=== PATIENT | female | born 1995 | race Two or more races ===

== ENCOUNTER 2017-12-05 09:34 | Emergency (ER) | payer SELFPAY ==
[~2017-12-05] VITALS: Ht 167.6 cm; Wt 98.0 kg
[2017-12-05 10:01] VITALS: BP 107/71
[2017-12-05] MEDS ORDERED: AMOX1TAB61 PO (10:44)
[2017-12-05] MEDS ORDERED: TRAM50TA PO (10:44)
[2017-12-05] MEDS ORDERED: IBUPROFEN 600 MG TABLET. PO ONE (10:45)
--- NOTE | 2017-12-05 10:48 | PHYS DOC ---
Past Medical History Past Medical History: No Pertinent History Past Surgical History: Other Additional Past Surgical Histo: Chinle teeth. Additional Information: 4 cigarettes/day. Alcohol Use: Occasionally Drug Use: None Adult General Chief Complaint Chief Complaint: FACE PAIN [facility] HPI Patient is a 22 year old [f__sex] who presents with [] Review of Systems Review of Systems Constitutional: Denies fever or chills [] Eyes: Denies change in visual acuity, redness, or eye pain [] HENT: Denies nasal congestion or sore throat [] Respiratory: Denies cough or shortness of breath [] Cardiovascular: No additional information not addressed in HPI [] GI: Denies abdominal pain, nausea, vomiting, bloody stools or diarrhea [] : Denies dysuria or hematuria [] Musculoskeletal: Denies back pain or joint pain [] Integument: Denies rash or skin lesions [] Neurologic: Denies headache, focal weakness or sensory changes [] Endocrine: Denies polyuria or polydipsia [] All other systems were reviewed and found to be within normal limits, except as documented in this note. Current Medications Current Medications Current Medications Medications (Trade) Dose Ordered Sig/Lilia Start Time Stop Time Status Last Admin Dose Admin Ibuprofen (Motrin) 600 mg 1X ONCE 12/05/17 10:45 12/05/17 10:46 Allergies Allergies Allergies Coded Allergies Type Severity Reaction Last Updated Verified No Known Drug Allergies 12/05/17 No Physical Exam Physical Exam Constitutional: Well developed, well nourished, no acute distress, non-toxic appearance. [] HENT: Normocephalic, atraumatic, bilateral external ears normal, oropharynx moist, no oral exudates, nose normal. [] Eyes: PERRLA, EOMI, conjunctiva normal, no discharge. [] Neck: Normal range of motion, no tenderness, supple, no stridor. [] Cardiovascular:Heart rate regular rhythm, no murmur [] Lungs & Thorax: Bilateral breath sounds clear to auscultation [] Abdomen: Bowel sounds normal, soft, no tenderness, no masses, no pulsatile masses. [] Skin: Warm, dry, no erythema, no rash. [] Back: No tenderness, no CVA tenderness. [] Extremities: No tenderness, no cyanosis, no clubbing, ROM intact, no edema. [] Neurologic: Alert and oriented X 3, normal motor function, normal sensory function, no focal deficits noted. [] Psychologic: Affect normal, judgement normal, mood normal. [] Current Patient Data Vital Signs Vital Signs Date Time Temp Pulse Resp B/P (MAP) Pulse Ox O2 Delivery O2 Flow Rate FiO2 12/05/17 10:01 98.2 72 16 107/71 (83) 97 Room Air 98.2 EKG EKG [] Radiology/Procedures Radiology/Procedures [] Course & Med Decision Making Course & Med Decision Making Pertinent Labs and Imaging studies reviewed. (See chart for details) [] Dragon Disclaimer Dragon Disclaimer This electronic medical record was generated, in whole or in part, using a voice recognition dictation system. Departure Departure Impression: Primary Impression: Submandibular gland inflammation Disposition: HOME, SELF-CARE Condition: STABLE Referrals: NO PCP (PCP) Patient Instructions: Abscess Additional Instructions: Follow-up with dentist advised- you could possibly have a submandibular abscess or swelling to a lymph node on your left lower jaw line which you are being prescribed antibiotics for Finish all antibiotic Warm compress to affected area every 3-4 hours Tylenol and/or ibuprofen as directed on container for pain You can take over the counter probiotic while taking antibiotic Avoid driving and drinking alcohol if taking Tramadol Scripts Tramadol Hcl (TRAMADOL HCL) 50 Mg Tablet 50 MG PO BID PRN for PAIN, #10 TAB 0 Refills Prov: ZAK GARCIA APRN 12/05/17 Amoxicillin/Potassium Clav (AUGMENTIN 875-125 TABLET) 1 Each Tablet 1 TAB PO BID, #20 TAB 0 Refills Take over the counter probiotics while on medication Prov: ZAK GARCIA APRN 12/05/17 ZAK GARCIA APRN Dec 05, 2017 10:48
== END 2017-12-05 11:03 | disposition home or self-care (01) ==
LOC: ER 09:34
DX: M27.2 Inflammatory conditions of jaws (principal); F17.210 Nicotine dependence, cigarettes, uncomplicated
CPT/HCPCS: 99283

== ENCOUNTER 2017-12-07 16:15 | Emergency (ER) | payer SELFPAY ==
[~2017-12-07] VITALS: Ht 167.6 cm; Wt 98.0 kg
[~2017-12-07 16:15] MED LIST: AMOX1TAB61 PO; TRAM50TA PO
[2017-12-07] MEDS ORDERED: IOHEXOL 300 MG/ML 100ML VIAL. IV ONE (18:00)
[2017-12-07] MEDS ORDERED: CONTRAST GIVEN. MC PRN (18:15)
[2017-12-07] MEDS ORDERED: fentaNYL PF VIAL 100 MCG/2 ML VIAL IV ONE ×2 (19:15→21:30)
[2017-12-07 19:20] LABS: CREATININE 0.6 mg/dL (0.6-1.0); GFR 123.9; POTASSIUM 3.8 mmol/L (3.5-5.1)
[2017-12-07 19:26] LABS: ALBUMIN 3.6 g/dL (3.4-5.0); ALBUMIN/GLOBULIN RATIO 0.8 (1.0-1.7); TOTAL BILIRUBIN 0.3 mg/dL (0.2-1.0); TOTAL PROTEIN 7.9 g/dL (6.4-8.2)
[2017-12-07] MEDS ORDERED: ONDANSETRON PF 4 MG/2 ML VIAL. IV ONE (19:45)
--- NOTE | 2017-12-07 20:36 | RAD ---
CT scan of the face with contrast 12/07/2017 CLINICAL HISTORY: Right jaw swelling and infection. TECHNIQUE: After the intravenous administration of 70 cc of Omnipaque 300, contiguous, 0.625 mm axial sections were obtained through the face and orbits. 3 mm reconstructed sagittal, axial and coronal images were obtained. One or more of the following individualized dose reduction techniques were utilized for this study: 1. Automated exposure control. 2. Adjustment of the mA and/or kV according to patient size. 3. Use of iterative reconstruction technique. FINDINGS: Soft tissue swelling is seen involving the right face adjacent to the body of the mandible. Increased density is seen within the adjacent fat. Skin thickening is seen in region. A rounded low-attenuation structure is seen within the subcutaneous fat in this region extending from the right aspect of the mandible which measures 2 cm in greatest diameter. This is consistent most likely with an abscess. A periapical lucency is seen involving the remaining right lower molar which measures 1.4 cm in greatest diameter. This appears to erode through the medial aspect of the mandible and is consistent with a periapical abscess. The soft tissue abscess is immediately lateral to this region. Prominent reactive cervical lymph nodes are seen, right greater than left. These measure 1 to 1.5 cm in size. The submandibular glands and parotid glands are within normal limits. The mucosal structures of the nasopharynx, oropharynx and hypopharynx and visualized larynx are within normal limits. Complete opacification of the left frontal sinuses due to mucosal thickening is seen. Mild to moderate mucosal thickening is seen involving the ethmoid air cells, left greater than right. IMPRESSION: A 1.4 cm periapical abscess is seen surrounding the roots of the remaining right lower molar within the right aspect of the mandible. This erodes through the medial aspect of the mandible. An adjacent 2 cm soft tissue abscess and associated inflammatory changes are seen lateral to this in the right aspect of the face as outlined above. Electronically signed by: Roger Chapin MD (12/07/2017 8:33 PM) [facility]
[2017-12-07 22:29] VITALS: BP 114/65
== END 2017-12-07 22:50 | disposition short-term general hospital (02) ==
LOC: ER 16:15
DX: K04.7 Periapical abscess without sinus (principal)
CPT/HCPCS: 36415; 70487; 80053; 81025; 96374; 96375; 96376; 99285; J2405; J3010; Q9967

== ENCOUNTER 2018-03-31 16:03 | Emergency (ER) | payer OTHER ==
[~2018-03-31] VITALS: Ht 167.6 cm; Wt 99.1 kg
[2018-03-31] MEDS ORDERED: ONDANSETRON PF 4 MG/2 ML VIAL. IV ONE (16:30)
[2018-03-31] MEDS ORDERED: FAMOTIDINE 20 MG/2 ML VIAL IVP ONE (16:30)
[2018-03-31] MEDS ORDERED: IV NORMAL SALINE 1000ML BAG 1,000 ML IV ONE ×2 (16:30)
--- NOTE | 2018-03-31 16:32 | PHYS DOC ---
Past Medical History Past Medical History: No Pertinent History Past Surgical History: Other Additional Past Surgical Histo: [place] teeth. Alcohol Use: Occasionally Drug Use: None Adult General Chief Complaint Chief Complaint: ABDOMINAL PAIN IN HPI HPI Patient is a 22 year old female who presents with bilateral side pains that come and go, body aches generalized, decreased appetite since yesterday, vomited 3 times the last 24 hours. Patient denies fever or any cold symptoms. She denies chest pain or shortness of air or cough, runny nose, nasal congestion , abdominal pain, vaginal discharge, vaginal bleeding. Review of Systems Review of Systems Constitutional: Denies fever or chills [] Eyes: Denies change in visual acuity, redness, or eye pain [] HENT: Denies nasal congestion or sore throat [] Respiratory: Denies cough or shortness of breath [] Cardiovascular: No additional information not addressed in HPI [] GI: Bilateral side pain comes and goes. Nausea vomiting. Denies abdominal pain, nausea, vomiting, bloody stools or diarrhea [] : Denies dysuria or hematuria [] Musculoskeletal: Generalized body aches. Denies back pain or joint pain [] Integument: Denies rash or skin lesions [] Neurologic: Denies headache, focal weakness or sensory changes [] All other systems were reviewed and found to be within normal limits, except as documented in this note. Current Medications Current Medications Current Medications Medications (Trade) Dose Ordered Sig/Lilia Start Time Stop Time Status Last Admin Dose Admin Famotidine (Pepcid Vial) 20 mg 1X ONCE 03/31/18 16:30 03/31/18 16:31 DC 03/31/18 16:43 20 MG Ondansetron HCl (Zofran) 4 mg 1X ONCE 03/31/18 16:30 03/31/18 16:31 DC 03/31/18 16:47 4 MG Sodium Chloride 1,000 ml @ 1,000 mls/hr 1X ONCE 03/31/18 16:30 03/31/18 17:29 DC Allergies Allergies Allergies Coded Allergies Type Severity Reaction Last Updated Verified No Known Drug Allergies 12/05/17 No Physical Exam Physical Exam Constitutional: Well developed, well nourished, no acute distress, non-toxic appearance. [] HENT: Normocephalic, atraumatic, bilateral external ears normal, oropharynx moist, no oral exudates, nose normal. [] Eyes: PERRLA, EOMI, conjunctiva normal, no discharge. [] Neck: Normal range of motion, no tenderness, supple, no stridor. [] Cardiovascular:Heart rate regular rhythm, no murmur [] Lungs & Thorax: Bilateral breath sounds clear to auscultation [] Abdomen: Bowel sounds normal, soft, slight bilateral side tenderness, no masses , no pulsatile masses. [] Skin: Warm, dry, no erythema, no rash. [] Back: No tenderness, no CVA tenderness. [] Extremities: No tenderness, no cyanosis, no clubbing, ROM intact, no edema. [] Neurologic: Alert and oriented X 3, normal motor function, normal sensory function, no focal deficits noted. [] Psychologic: Affect normal, judgement normal, mood normal. [] Current Patient Data Vital Signs Vital Signs Date Time Temp Pulse Resp B/P (MAP) Pulse Ox O2 Delivery O2 Flow Rate FiO2 03/31/18 16:15 98.5 104 18 111/55 (73) 100 Room Air 98.5 Lab Values Laboratory Tests Test 03/31/18 16:10 03/31/18 16:30 03/31/18 17:00 03/31/18 18:10 Urine Color Yellow Urine Clarity Clear Urine pH 5.5 Urine Specific [place] 1.025 Urine Protein Negative mg/dL (NEG-TRACE) Urine Glucose (UA) Negative mg/dL (NEG) Urine Ketones (Stick) >=80 mg/dL (NEG) Urine Blood Trace (NEG) Urine Nitrite Negative (NEG) Urine Bilirubin Negative (NEG) Urine Urobilinogen Dipstick 1.0 mg/dL (0.2 mg/dL) Urine Leukocyte Esterase Small (NEG) Urine RBC Occ /HPF (0-2) Urine WBC 1-4 /HPF (0-4) Urine Squamous Epithelial Cells Occ /LPF Urine Bacteria Few /HPF (0-FEW) Urine Mucus Mod /LPF White Blood Count 9.0 x10^3/uL (4.0-11.0) Red Blood Count 4.06 x10^6/uL (3.50-5.40) Hemoglobin 12.3 g/dL (12.0-15.5) Hematocrit 34.3 % (36.0-47.0) L Mean Corpuscular Volume 84 fL (79-100) Mean Corpuscular Hemoglobin 30 pg (25-35) Mean Corpuscular Hemoglobin Concent 36 g/dL (31-37) Red Cell Distribution Width 14.0 % (11.5-14.5) Platelet Count 265 x10^3/uL (140-400) Neutrophils (%) (Auto) 90 % (31-73) H Lymphocytes (%) (Auto) 5 % (24-48) L Monocytes (%) (Auto) 5 % (0-9) Eosinophils (%) (Auto) 0 % (0-3) Basophils (%) (Auto) 0 % (0-3) Neutrophils # (Auto) 8.1 x10^3uL (1.8-7.7) H Lymphocytes # (Auto) 0.5 x10^3/uL (1.0-4.8) L Monocytes # (Auto) 0.4 x10^3/uL (0.0-1.1) Eosinophils # (Auto) 0.0 x10^3/uL (0.0-0.7) Basophils # (Auto) 0.0 x10^3/uL (0.0-0.2) Maternal Serum HCG Beta Subunit 36836 mIU/mL (0-5) H Sodium Level 135 mmol/L (136-145) L Potassium Level 3.4 mmol/L (3.5-5.1) L Chloride Level 103 mmol/L (98-107) Carbon Dioxide Level 21 mmol/L (21-32) Anion Gap 11 (6-14) Blood Urea Nitrogen 8 mg/dL (7-20) Creatinine 0.5 mg/dL (0.6-1.0) L Estimated GFR (Cockcroft-Gault) 152.9 BUN/Creatinine Ratio 16 (6-20) Glucose Level 86 mg/dL (70-99) Calcium Level 8.3 mg/dL (8.5-10.1) L Total Bilirubin 0.3 mg/dL (0.2-1.0) Aspartate Amino Transferase (AST) 14 U/L (15-37) L Alanine Aminotransferase (ALT) 19 U/L (14-59) Alkaline Phosphatase 66 U/L (46-116) Total Protein 6.9 g/dL (6.4-8.2) Albumin 2.9 g/dL (3.4-5.0) L Albumin/Globulin Ratio 0.7 (1.0-1.7) L Influenza Type A Antigen Negative (NEGATIVE) Influenza Type B Antigen Negative (NEGATIVE) Laboratory Tests 03/31/18 16:30 Laboratory Tests 03/31/18 17:00 EKG EKG [] Radiology/Procedures Radiology/Procedures Pelvic US PROCEDURE: PREG MORE THAN OR EQ TO 14 WKS Examination: PREG MORE THAN OR EQ TO 14 WKS History: ABD PAIN Comparison/Correlation: None Findings: OB ultrasound exam was performed by transabdominal technique. Single living intrauterine gestation is present with variable lie. heart rate of 168 bpm is present. movement and cardiac activity noted. Biparietal diameter is 3 cm corresponding to 15 weeks 4 days gestation. Head circumference 11.1 cm corresponding to 15 weeks 3 days. Abdominal circumference is 9.4 cm corresponding to 15 weeks 4 days. Femur length is 1.8 cm corresponding to 15 weeks 3 days. Head circumference abdominal circumference ratio is 1.19. Average ultrasound age of 15 weeks 4 days is present with EDC of 09/18/2018. Note is made of marginal placenta previa. No hemorrhage identified. Impression: Single living intrauterine gestation with average ultrasound age corresponding to 15 weeks 4 days. Marginal placenta previa. Course & Med Decision Making Course & Med Decision Making Patient is a 22 year old female who presents with bilateral side pains that come and go, body aches generalized, decreased appetite since yesterday, vomited 3 times the last 24 hours. Patient denies fever or any cold symptoms. She denies chest pain or shortness of air or cough, runny nose, nasal congestion , abdominal pain, vaginal discharge, vaginal bleeding. Alert and oriented. Skin pink warm and dry. Mucus membranes are moist. Lungs are clear to auscultation all lobes. Afebrile. Abdomen is soft and nontender. Patient states it does hurt with palpation on either side of her abdomen. She denies any blood or dysuria symptoms. Heart rate regular without murmur. Patient states that in the past she 's been anemic, had dental surgery, quit smoking 15 weeks ago which she is . She's had 3 live births, loss one baby and now with defect. Patient states she is due October 02 [address] her doctor [address] Dr[address] Becerra of which she will see on for her appointment. Patient is given normal saline boluses �2, Pepcid, Zofran in the ED. 1752: Patient is reported off to [facility]. influenza testing is negative, U/S shows single intrauterine gestation with average U/S age of 15 weeks, 4 days. FHR 168 Dragon Disclaimer Boris Disclaimer This electronic medical record was generated, in whole or in part, using a voice recognition dictation system. Departure Departure Impression: Primary Impression: Abdominal pain during in second trimester Additional Impression: Nausea and vomiting during prior to 22 weeks gestation Disposition: 01 HOME, SELF-CARE Condition: STABLE Referrals: NO PCP (PCP) Patient Instructions: Abdominal Pain During , [id number]-[id number], Nausea, Adult, [id number] Additional Instructions: Fill prescriptions and use them as directed. Recommend clear fluids for the next 24 hours. Then you may advance to bland foods such as bananas, rice, applesauce, and dry toast. Follow-up with your primary care doctor in the next 1 -2 days. Return to the emergency room if your symptoms worsen. Scripts Ondansetron (ONDANSETRON ODT) 4 Mg Tab.rapdis 1 TAB PO PRN Q6-8HRS PRN for NAUSEA/VOMITING, #16 TAB 0 Refills Prov: RONAL DUDLEY APRN 03/31/18 Problem Qualifiers JONATAN RIOS APRN Mar 31, 2018 16:32 RONAL DUDLEY APRN Mar 31, 2018 18:56
[2018-03-31 16:41] LABS: BASO % 0 % (0-3); EOS % 0 % (0-3); HEMATOCRIT 34.3 % (36.0-47.0); HEMOGLOBIN 12.3 g/dL (12.0-15.5); LYMPH # 0.5 x10^3/uL (1.0-4.8); LYMPH % 5 % (24-48); MEAN CORPUSCULAR HEMOGLOBIN 30 pg (25-35); MEAN CORPUSCULAR HGB CONC 36 g/dL (31-37); MEAN CORPUSCULAR VOLUME 84 fL (79-100); MONO # 0.4 x10^3/uL (0.0-1.1); MONO % 5 % (0-9); NEUT # 8.1 x10^3uL (1.8-7.7); NEUT % 90 % (31-73); PLATELET COUNT 265 x10^3/uL (140-400); RED BLOOD COUNT 4.06 x10^6/uL (3.50-5.40)
[2018-03-31 17:25] LABS: CALCIUM 8.3 mg/dL (8.5-10.1); CREATININE 0.5 mg/dL (0.6-1.0); GFR 152.9; POTASSIUM 3.4 mmol/L (3.5-5.1)
[2018-03-31 17:30] LABS: ALBUMIN 2.9 g/dL (3.4-5.0); ALBUMIN/GLOBULIN RATIO 0.7 (1.0-1.7); TOTAL BILIRUBIN 0.3 mg/dL (0.2-1.0); TOTAL PROTEIN 6.9 g/dL (6.4-8.2)
[2018-03-31 17:49] LABS: BILIRUBIN,URINE NEGATIVE (NEG); CLARITY,URINE CLEAR; COLOR,URINE YELLOW; NITRITE,URINE NEGATIVE (NEG); PH,URINE 5.5; PROTEIN,URINE NEGATIVE (NEG-TRACE)
[2018-03-31 18:02] LABS: BACTERIA,URINE FEW /HPF (0-FEW); RBC,URINE OCC /HPF (0-2); SQUAMOUS EPITHELIAL CELL,UR OCC /LPF
--- NOTE | 2018-03-31 18:07 | RAD ---
Examination: PREG MORE THAN OR EQ TO 14 WKS History: ABD PAIN Comparison/Correlation: None Findings: OB ultrasound exam was performed by transabdominal technique. Single living intrauterine gestation is present with variable lie. heart rate of 168 bpm is present. movement and cardiac activity noted. Biparietal diameter is 3 cm corresponding to 15 weeks 4 days gestation. Head circumference 11.1 cm corresponding to 15 weeks 3 days. Abdominal circumference is 9.4 cm corresponding to 15 weeks 4 days. Femur length is 1.8 cm corresponding to 15 weeks 3 days. Head circumference abdominal circumference ratio is 1.19. Average ultrasound age of 15 weeks 4 days is present with EDC of 09/18/2018. Note is made of marginal placenta previa. No hemorrhage identified. Impression: Single living intrauterine gestation with average ultrasound age corresponding to 15 weeks 4 days. Marginal placenta previa. Electronically signed by: Klever Doan MD (03/31/2018 6:03 PM) [facility]
[2018-03-31 18:45] LABS: INFLUENZA A PATIENT NEGATIVE (NEGATIVE); INFLUENZA B PATIENT NEGATIVE (NEGATIVE)
[2018-03-31] MEDS ORDERED: ONDA4TAB12 PO (18:55)
[2018-03-31 19:10] VITALS: BP 110/56
== END 2018-03-31 19:20 | disposition home or self-care (01) ==
LOC: ER 16:03
DX: O21.8 Other vomiting complicating pregnancy (principal); R10.9 Unspecified abdominal pain; M79.18 Myalgia, other site; Z3A.15 15 weeks gestation of pregnancy
CPT/HCPCS: 36415; 76805; 80053; 81001; 84702; 85025; 87086; 87804; 96361; 96374; 96375; 99284; J2405; J3490; J7030